=== PATIENT | male | born 1955 | race Caucasian/White ===

== ENCOUNTER 2017-05-07 09:53 | Day surgery (SDC) | payer OTHER ==
[2017-05-07] VITALS (10 sets, daily range): BP systolic 135–160; BP diastolic 79–83; PULSE 61–108; RESP 16–22; TEMP 79.6–98.3; O2SAT 95–98
[~2017-05-07] VITALS: Ht 188 cm; Wt 101.5 kg
[~2017-05-07 09:53] MED LIST: ASPI81 PO; ATOR10 PO; GLUCTAB PO; VASO10TA8 PO
[2017-05-07] MEDS: NS 1000P @30 MLS/HR (KVO) IV SCH (10:15)
[2017-05-07 10:36] LABS: BASOPHIL # 0.1 TH/MM3 (0-0.2); BASOPHIL % 0.9 % (0.0-2.0); EOSINOPHIL # 0.1 TH/MM3 (0-0.4); EOSINOPHIL % 1.9 % (0.0-4.0); HEMATOCRIT 35.4 % (39.0-51.0); HEMO FLAGS DIFF FINAL; LYMPH % 21.2 % (9.0-44.0); LYMPHOCYTE # 1.6 TH/MM3 (1.0-4.8); MEAN CELL VOLUME 82.5 FL (80.0-100.0); MEAN CORPUSCULAR HEMOGLOBIN 28.1 PG (27.0-34.0); MONO % 8.1 % (0.0-8.0); NEUT % 67.9 % (16.0-70.0); PLATELET COUNT 218 TH/MM3 (150-450); RED BLOOD COUNT 4.29 MIL/MM3 (4.50-5.90); RED CELL DISTRIBUTION WIDTH 14.6 % (11.6-17.2); WHITE BLOOD COUNT 7.4 TH/MM3 (4.0-11.0)
[2017-05-07] MEDS ORDERED: ENAL10TA PO (10:38)
[2017-05-07] MEDS ORDERED: METO25TA6 PO (10:38)
[2017-05-07] MEDS ORDERED: AMLO5TAB2 PO (10:38)
[2017-05-07] MEDS ORDERED: BRIM0.2S4 EACH EYE (10:38)
[2017-05-07] MEDS ORDERED: TRAD5TAB PO (10:38)
[2017-05-07] MEDS ORDERED: METF500T PO (10:38)
[2017-05-07] MEDS ORDERED: ATOR10TA15 PO (10:38)
[2017-05-07] MEDS ORDERED: TRAV0.00 RIGHT EYE (10:38)
[2017-05-07] MEDS ORDERED: ASPI81TA11 PO (10:38)
[2017-05-07 10:43] LABS: APTT (PATIENT) 27.3 SEC (24.3-30.1); PROTHROMBIN TIME - PATIENT 10.7 SEC (9.8-11.6)
[2017-05-07 10:47] LABS: BICARBONATE 28.9 MEQ/L (21.0-32.0); POTASSIUM 4.1 MEQ/L (3.5-5.1)
[2017-05-07] MEDS ORDERED: methylPREDNISolone SOD SUCC 125 MG/2 ML VIAL ONE (10:47)
[2017-05-07] MEDS ORDERED: FAMOTIDINE 20 MG/2 ML VIAL IV PUSH ONE (11:15)
[2017-05-07] MEDS ORDERED: methylPREDNISolone SOD SUCC 125 MG/2 ML VIAL IV PUSH ONE (11:15)
[2017-05-07] MEDS ORDERED: MIDAZOLAM HCL 2 MG/2 ML VIAL ONE (13:15)
[2017-05-07] MEDS ORDERED: HEPARIN-NS/PF INJ 500 ML ONE (13:15)
[2017-05-07] MEDS ORDERED: FAMOTIDINE 20 MG/2 ML VIAL ONE (13:24)
[2017-05-07] MEDS ORDERED: diphenhydrAMINE HCL 50 MG/ML VIAL ONE ×2 (13:43→13:49)
[2017-05-07] MEDS ORDERED: TICAGRELOR 90 MG TAB PO ONE (15:04)
--- NOTE | 2017-05-07 15:33 | CATHPROC ---
[employer] HIS Report Study Information Study Number Admission Scheduled Start Study Start [id number] May 07 2017 9:53AM 05/07/2017 May 07 2017 1:11PM [place] [facility] Cardiac Catheterization Admit Source Facility Department Other [facility] - Water Truck Driver Physician and Clinical Staff Initial Cedrick De Paz Jig Bore Operator Marie Oliveira BSRN Other cathlab, cathlab Recorder Gerry Finley RCIS(BS) Scrub Leo Galvez,RT(R) Procedures Performed Procedure Location (Site) Vessel Name Angiogram LV LV Ventricle Coronary Angiograms RCA Right Coronary Drug Eluting Inflatio LAD Mid Left Coronary L Heart Cath PTCA LAD Mid Left Coronary Wire insertion Fem Art (right) Femoral Art Equipment Time Neurourologist Description Size Mfg Part Number Used/Scraped WIRE, BALANCE MIDDLEWEIGHT [id number] 15:03 [employer] 190CM Used 190CM *[id number] WIRE, BALANCE MIDDLEWEIGHT [id number] 14:19 [employer] 300CM Used 300CM *[id number] TRANSDUCER, TRUWAVE [id number] 13:39 HERNANDEZ CONSTANTINO * Used W/STOCKCOCK *[id number] CARDIOVASCULAR CATHETER, CORONARY CLASSIC [id number] 14:25 Used SYSTEMS INC. 1.25MM *[id number] CARDIOVASCULAR WIRE, VIPER ADVANCE [id number] 14:23 Used SYSTEMS INC. CORONARY FLP *[id number] [id number] *[id number] 534-520T *[id number] [id number] *[id number] *[id number] *[id number] 15:11 DAIG/ST. ANY MEDICAL ANGIOSEAL, FR6 VIP FR 6 Used *[id number] [id number] 13:39 MEDLINE INDUSTRIES PACK, CCL CUSTOM * Used *[id number] 13:39 MEDLINE PACER PEN, SKIN DUAL W/ RULER * Used *[id number] BALLOON, 1.25 X 6MM SPRINTER [id number] 14:22 MEDTRONIC 6MM Used LEGEND OTW *[id number] 14:41 MEDTRONIC BALLOON, 2.0 X 12MM EUPHORA 12MM Used *[id number] BALLOON, 2.5 X 12MM NC [id number] 14:54 MEDTRONIC 12MM Used EUPHORA *[id number] STENT, 2.5 26 RESOLUTE [id number] 14:49 MEDTRONIC 2.5 26 Used INTEGRITY RX *[id number] [id number] 14:44 [employer]App MEDICAL 30 RUBIN INDEFLATOR Used *4154525 [id number] 14:13 MERIT MEDICAL SHEATH, FR6.5 PRELUDE 11CM FR 6.5 038ACT Used *[id number] [id number] 13:39 [employer]App MEDICAL WIRE, 3MMJ .035 180CM 180CM Used *[id number] PROBE COVER, STERILE [id number] 13:39 NJOY MEDICAL * Used ULTRASOUND W/ GEL *[id number] 13:39 NAMIC MANIFOLD, 4 PORT * Used *[id number] [id number] 13:39 NAMIC TUBING, HIGH PRESSURE 48" 48" Used *[id number] 13:39 NYCOMED OMNIPAQUE, 350 MG, 150ML 150ML [id number] Used [id number] 13:39 NOONAN MEDICAL BLANKET,WARM AIR CCL * Used *[id number] 13:39 TERUMO MEDICAL SHEATH, FR5 TERUMO (10CM) FR 5 [id number] Used Equipment Model, Serial, Lot Number and Expiration Data Description Model Number Serial Number Lot Number Expiration Date ANGIOSEAL, FR6 VIP [id number] 01-07-2018 STENT, 2.5 26 RESOLUTE [id number] 07-15-2018 INTEGRITY RX WIRE, VIPER ADVANCE CORONARY [id number] 10-09-2018 History: Current Medications Medication Dosage/Unit Route Frequency Last Date/Time Taken ASA Glucophage Statins (any) History: Allergies Allergy Reaction Sulfa Contrast Media History: Risk Factors Family History of Hypertension Dyslipidemia Previous ME Previous Heart Failure Premature CAD Yes Yes No No No Prior Valve Prior PCI Prior CABG Surgery No No No Cerebrovascular Peripheral Artery Chronic Lung On Dialysis Diabetes Diabetes Therapy Disease Disease Disease No No No No Yes Oral History: Symptoms/Diagnosis Selection Items Chest pain Palpitations SOB History: Stress Tests Stress or Imaging Studies Performed Yes Standard Exercise Stress Test No Stress Echo No Stress Test SPECT Stress Test SPECT Result Stress Test SPECT Ischemia Risk/Extent Yes Positive Intermediate Stress Test CMR No Cardiac CTA Coronary Calcium Score No No Labs Hgb (g/dl) Hct (%) RBC (MIL/MM3) WBC (l/cumm) Platelets (thousands) 11.60-17.00 35.00-51.00 4.00-5.90 4.00-11.00 150.00-450.00 12.0 35.4 4.3 7.4 218 Glucose (mg/dl) BUN (mg/dl) Creatinine (mg/dl) BUN:Creatinine (1:x) 74.00-106.00 7.00-18.00 0.50-1.30 10.00-20.00 141 16 1.4 11.4 Na (meq/l) K (meq/l) Cl (meq/l) CO2 (mmol/L) Ca (mg/dl) 136.00-145.00 3.50-5.10 98.00-107.00 21.00-32.00 8.50-10.10 139 4.1 104 28.9 9.9 PT (sec) PTT (sec) INR (PTT:PT) 9.80-11.60 24.30-30.10 0.90-1.10 10.7 27.3 1 CPK-MB (ng/ML) 0.50-3.60 Not Drawn Medication Medication Total Dose (Bolus/Oral) Medication Total Dosage/Unit 1% XYLOCAINE 20 mL BENADRYL 75 mg BRILINTA 180 mg HEPARIN 8000 units NTG (IC) 600 mcg PEPCID 20 mg Medications (Bolus/Oral) Medication Time Given Dosage/Unit Administered By Reason PEPCID 05/07/2017 1:24:04 PM 20 mg Rittenour, Marie 20 mg PEPCID given in lab by Marie Oliveira BSRN in Left Antecubital via Peripheral IV. Ordered by Cedrick Graves. BENADRYL 05/07/2017 1:44:00 PM 25 mg Rittenour, Marie 25 mg BENADRYL given in lab by Marie Oliveira BSRN in Left Antecubital via Peripheral IV. Ordered by Cedrick Graves. BENADRYL 05/07/2017 1:47:29 PM 25 mg Rittenour, Marie 25 mg BENADRYL given in lab by Marie Oliveira BSRN in Left Antecubital via Peripheral IV. Ordered by Cedrick Graves. 1% XYLOCAINE 05/07/2017 1:49:02 PM 20 mL Cedrick Graves 20 mL 1% XYLOCAINE given in lab by Cedrick Graves in Right Groin via Subcutaneous. Ordered by Cedrick Silva. BENADRYL 05/07/2017 1:52:00 PM 25 mg Tee, Marie 25 mg BENADRYL given in lab by Marie Oliveira BSRN in Left Antecubital via Peripheral IV. Ordered by Cedrick Graves. HEPARIN 05/07/2017 2:07:08 PM 8000 units Ritconstantino, Marie 8000 units HEPARIN given in lab by Marie Oliveira BSRN in Left Antecubital via Peripheral IV. Orde red by Cedrick Graves. NTG (IC) 05/07/2017 2:40:10 PM 200 mcg Cedrick Graves 200 mcg NTG (IC) given in lab by Cedrick Graves via Intra-coronary. Ordered by Cedrick Graves. NTG (IC) 05/07/2017 2:52:38 PM 200 mcg Cedrick Graves 200 mcg NTG (IC) given in lab by Cedrick Graves via Intra-coronary. Ordered by Cedrick Graves. NTG (IC) 05/07/2017 2:58:02 PM 200 mcg Cedrick Graves 200 mcg NTG (IC) given in lab by Cedrick Graves via Intra-coronary. Ordered by Cedrick Graves. BRILINTA 05/07/2017 3:17:00 PM 180 mg Tee, Marie 180 mg BRILINTA given in lab by Marie Oliveira BSRN in Left Antecubital via Oral. Ordered by Cedrick Luevano. Medication (Drip) Medication Time Given Dosage/Unit Concentration/Unit Diluent (ml) Solutio n IV Solutions 05/07/2017 1:12:37 PM 0 mL (IV) 500 NaCl .9 Patient arrived on IV Solutions given by natalialab, cathlab in Left Antecubital via Peripheral IV. Pump /Drip Flow = 20 ml/hr using NaCl .9. Ordered by Cedrick Graves. Initial Case Assessment Cardiovascular HR Rhythm NIBP Chest Pain 84 SR 165/88 0 Edema Present Skin color Skin None Normal Warm Dry Circulatory - Right Pulses Dorsalis Pedis Femoral 3 3 Scale (0,1,2,3,4,d) Circulatory - Left Pulses Dorsalis Pedis Femoral 3 3 Scale (0,1,2,3,4,d) Neurological State Oriented to time-place- Alert Moves all extremities person Respiration - General Respiration Rate SpO2 (%) (B/min) 13 98 Final Case Assessment Cardiovascular HR Rhythm NIBP Chest Pain 87 SR 166/98 0 Edema Present Skin color Skin None Normal Warm Dry Circulatory - Right Pulses Dorsalis Pedis Femoral 3 3 Scale (0,1,2,3,4,d) Circulatory - Left Pulses Dorsalis Pedis Femoral 3 3 Scale (0,1,2,3,4,d) Neurological State Oriented to time-place- Alert Moves all extremities person Respiration - General Respiration Rate SpO2 (%) (B/min) 13 98 Chronological Log Time Study Chronological Log 13:11:11 Patient arrived via Bed. 13:11:12 Patient Name, D.O.B, / Armband Verified By R.N. 13:11:16 Consent signed by the physician and the patient and verified by the Water Truck Driver staff. 13:11:18 Patient has been NPO for More than 6Hrs. 13:11:19 NO Skin Breakdown- 13:12:29 Patient Warmer Placed on the Table. 13:12:36 A # 20 IV was noted in the Antecubital (left). Grade = 0 Patient arrived on IV Solutions given by cathlab, cathlab in Left Antecubital via Peripheral IV . Pump/Drip Flow = 20 13:12:37 ml/hr using NaCl .9. Ordered by Cedrick Graves. 13:12:38 History and physical on the chart or being dictated. Vitals capture started with the following parameters, Patient=Adult, Interval=5 min, Initial Pr sjmjat=166 mmHg, 13:19:46 Deflation Rate=5 mmHg 13:20:23 HR=84 bpm, NJDE=449/88 mmhg, SpO2=98.0 %, Resp=14 B/min, Pain=0, Roger=10, Carter=2 13:22:21 Reference ECG taken Assessment: Initial Case, HR=84 BPM, Rhythm=SR, HDIH=597/88 mmhg, Chest Pain=0, Edema=None, Col or=Normal, Skin = Warm, Dry Right Pulses: Hugh Ped=3, Femoral=3 13:22:27 Left Pulses: Hugh Ped=3, Femoral=3 Neurological: State=Alert, Ox3, GODINEZ Respiration: Resp=13 B/min, SpO2=98 % 13:23:37 Bilateral groins prepped with 2% chlorhexidine, and with a 3 min. waiting time. 20 mg PEPCID given in lab by Marie Oliveira BSRN in Left Antecubital via Peripheral IV. Orde red by Ely, 13:24:04 Cedrick. 13:25:28 HR=80 bpm, VHMC=995/79 mmhg, SpO2=99.0 %, Resp=17 B/min, Pain=0, Roger=10, Carter=2 13:25:50 SOLU-MEDROL GIVEN IN DOCU 13:27:01 Pressure channel 1 zeroed. 13:29:00 paged 13:30:27 HR=86 bpm, SWCC=120/82 mmhg, SpO2=99.0 %, Resp=7 B/min, Pain=0, Roger=10, Carter=2 13:35:30 HR=80 bpm, AWYB=762/75 mmhg, SpO2=99.0 %, Resp=11 B/min, Pain=0, Roger=10, Carter=2 13:40:29 HR=78 bpm, SVHH=069/76 mmhg, SpO2=98.0 %, Resp=20 B/min, Pain=0, Roger=10, Carter=2 13:43:34 MD arrived. 25 mg BENADRYL given in lab by Marie Oliveira BSRN in Left Antecubital via Peripheral IV. Or dered by Ely, 13:44:00 Cedrick. 13:46:05 HR=90 bpm, MYEY=377/83 mmhg, SpO2=98.0 %, Resp=14 B/min, Pain=0, Roger=10, Carter=2 25 mg BENADRYL given in lab by Marie Oliveira BSRN in Left Antecubital via Peripheral IV. Or dered by Ely, 13:47:29 Cedrick. Time Out. Correct patient, correct procedure,correct physician, power injector loaded with cont rast with surgical team 13:48:19 present. Time Out Concurred by , individual staff in procedure 13:49:01 Case Start 13:49:02 20 mL 1% XYLOCAINE given in lab by Cedrick Graves in Right Groin via Subcutaneous. Ordered by Cedrick Graves. 13:49:41 Access site was Right Femoral Artery. 13:50:27 HR=93 bpm, PZIN=576/91 mmhg, SpO2=98.0 %, Resp=16 B/min, Pain=0, Roger=10, Carter=2 13:50:52 A SHEATH, FR5 TERUMO (10CM) FR 5 was advanced into the Fem Art (right) using the Percutaneo us technique. 25 mg BENADRYL given in lab by Marie Oliveira BSRN in Left Antecubital via Peripheral IV. Or dered by Ely, 13:52:00 Cedrick. A PIGTAIL ANG. INFINITI CATHETER FR 5 was advanced over a wire. OMNIPAQUE, 350 MG, 150ML 150ML was used 13:52:11 for injections. 13:52:59 The LV was injected at 10 cc/sec for a total of 30. OMNIPAQUE, 350 MG, 150ML 150ML used. Recorded Pressure: LV, HR=94, Condition=Condition 1 13:53:54 (Left Ventricle) LV 187/0/18 Recorded Pressure: LV, Ao, HR=98, Condition=Condition 1 13:55:15 (Left Ventricle) LV 197/7/21, (Aorta) Ao 178/88/129 13:55:30 HR=96 bpm, TLQH=384/93 mmhg, SpO2=99.0 %, Resp=9 B/min, Pain=0, Roger=10, Carter=2 13:55:34 Catheter was removed A JL 4.0 INFINITI CATHETER FR 5 was advanced over a wire. OMNIPAQUE, 350 MG, 150ML 150ML was us ed for 13:55:36 injections. Recorded Pressure: Ao, HR=91, Condition=Condition 1 13:58:21 (Aorta) Ao 147/77/108 13:59:31 Catheter was removed A AR MOD INFINITI CATHETER FR 5 was advanced over a wire. OMNIPAQUE, 350 MG, 150ML 150ML was us ed for 13:59:34 injections. 13:59:42 The RCA was injected and visualized at various angles. OMNIPAQUE, 350 MG, 150ML 150ML used . 14:00:31 HR=91 bpm, UMQV=736/79 mmhg, SpO2=99.0 %, Resp=4 B/min, Pain=0, Roger=10, Carter=2 14:03:22 Catheter was removed 14:05:28 HR=89 bpm, KQWZ=276/80 mmhg, SpO2=98.0 %, Resp=24 B/min, Pain=0, Roger=10, Carter=2 8000 units HEPARIN given in lab by Marie Oliveira BSRN in Left Antecubital via Peripheral IV . Ordered by Ely, 14:07:08 Cedrick. 14:11:08 QG=138 bpm, QOFP=582/109 mmhg, SpO2=99.0 %, Resp=12 B/min, Pain=0, Roger=10, Carter=2 A SHEATH, FR6.5 PRELUDE 11CM FR 6.5 was exchanged in the Fem Art (right). This was necessary in order to 14:12:33 accomodate a larger catheter. 14:13:12 Activated Clotting Time Drawn A XB LAD 4.0 GUIDE CATHETER FR 6 was advanced over a wire. OMNIPAQUE, 350 MG, 150ML 150ML was u sed for 14:13:54 injections. 14:15:37 HR=97 bpm, YBPG=540/89 mmhg, SpO2=98.0 %, Resp=14 B/min, Pain=0, Roger=10, Carter=2 14:17:00 ACT (Normal Range 90-180) = 278 14:19:05 A WIRE, BALANCE MIDDLEWEIGHT 300CM 300CM was inserted via Fem Art (right). 14:20:30 HR=92 bpm, WRIL=117/88 mmhg, SpO2=97.0 %, Resp=23 B/min, Pain=0, Roger=10, Carter=2 14:20:40 Interventional wire has crossed the lesion A BALLOON, 1.25 X 6MM SPRINTER LEGEND OTW 6MM was inserted over WIRE, BALANCE MIDDLEWEIGHT 300C M 14:21:26 300CM via the Fem Art (right). 14:23:52 The previous wire was exchanged for a WIRE, VIPER ADVANCE CORONARY. 14:25:31 HR=90 bpm, PCFT=516/89 mmhg, SpO2=97.0 %, Resp=23 B/min, Pain=0, Roger=10, Carter=2 14:29:50 An CATHETER, CORONARY CLASSIC 1.25MM catheter was inserted into the Fem Art (right). 14:30:00 ATHERECTOMY IN PROGRESS 14:30:34 HR=83 bpm, ZZNX=185/81 mmhg, SpO2=98.0 %, Resp=18 B/min, Pain=0, Roger=10, Carter=2 14:35:02 ATHERECTOMY DEVICE REMOVED 14:35:31 TX=315 bpm, JNRP=748/108 mmhg, SpO2=98.0 %, Resp=14 B/min, Pain=0, Roger=10, Carter=2 14:36:00 Wire removed 14:39:56 A WIRE, ATW MARKER 195CM 195CM was inserted via Fem Art (right). 14:40:10 200 mcg NTG (IC) given in lab by Cedrick Graves via Intra-coronary. Ordered by Antonio Graves. 14:40:32 HR=95 bpm, BIIN=006/86 mmhg, SpO2=98.0 %, Resp=5 B/min, Pain=0, Roger=10, Carter=2 14:43:06 Activated Clotting Time Drawn A BALLOON, 2.0 X 12MM EUPHORA 12MM was inserted over WIRE, ATW MARKER 195CM 195CM via the Fem A rt 14:43:41 (right). A BALLOON, 2.0 X 12MM EUPHORA 12MM over a WIRE, ATW MARKER 195CM 195CM in the LAD Mid was infla kye using 14:43:51 a 30 RUBIN INDEFLATOR at 14 rubin for 30 sec. A BALLOON, 2.0 X 12MM EUPHORA 12MM over a WIRE, ATW MARKER 195CM 195CM in the LAD Mid was infla kye using 14:45:05 a 30 RUBIN INDEFLATOR at 14 rubin for 25 sec. 14:45:27 HR=92 bpm, YAHX=976/93 mmhg, SpO2=97.0 %, Resp=6 B/min, Pain=0, Roger=10, Carter=2 A BALLOON, 2.0 X 12MM EUPHORA 12MM over a WIRE, ATW MARKER 195CM 195CM in the LAD Mid was infla kye using 14:45:49 a 30 RUBIN INDEFLATOR at 14 rubin for 25 sec. Recorded Pressure: Ao, HR=98, Condition=Condition 1 14:46:07 (Aorta) Ao 174/99/135 14:47:08 ACT (Normal Range 90-180) = 283 14:48:09 Balloon Removed. 14:50:32 HR=84 bpm, MNYH=397/86 mmhg, SpO2=98.0 %, Resp=16 B/min A STENT, 2.5 26 RESOLUTE INTEGRITY RX 2.5 26 was advanced through a XB LAD 4.0 GUIDE CATHETER F R 6 over a 14:50:33 WIRE, ATW MARKER 195CM 195CM. A STENT, 2.5 26 RESOLUTE INTEGRITY RX 2.5 26 was deployed using a 30 RUBIN INDEFLATOR at 9 atmosp heres for 38 14:50:45 seconds in the LAD Mid. 14:52:18 Delivery device removed 14:52:38 200 mcg NTG (IC) given in lab by Cedrick Graves via Intra-coronary. Ordered by Antonio Graves. A BALLOON, 2.5 X 12MM NC EUPHORA 12MM was inserted over WIRE, ATW MARKER 195CM 195CM via the Fe m Art 14:54:38 (right). A BALLOON, 2.5 X 12MM NC EUPHORA 12MM over a WIRE, ATW MARKER 195CM 195CM in the LAD Mid was in flated 14:54:49 using a 30 RUBIN INDEFLATOR at 12 rubin for 19 sec. 14:55:33 HR=91 bpm, JDNB=178/88 mmhg, SpO2=96.0 %, Resp=10 B/min, Pain=0, Roger=10, Carter=2 A BALLOON, 2.5 X 12MM NC EUPHORA 12MM over a WIRE, ATW MARKER 195CM 195CM in the LAD Mid was in flated 14:56:43 using a 30 RUBIN INDEFLATOR at 12 rubin for 22 sec. A BALLOON, 2.5 X 12MM NC EUPHORA 12MM over a WIRE, ATW MARKER 195CM 195CM in the LAD Mid was in flated 14:57:17 using a 30 RUBIN INDEFLATOR at 12 rubin for 25 sec. 14:57:43 Balloon Removed. 14:58:02 200 mcg NTG (IC) given in lab by Cedrick Graves via Intra-coronary. Ordered by Antnoio Graves. 14:59:22 Wire removed 15:00:30 HR=95 bpm, QARW=199/83 mmhg, SpO2=97.0 %, Resp=13 B/min, Pain=0, Roger=10, Carter=2 15:03:23 A WIRE, BALANCE MIDDLEWEIGHT 190CM 190CM was inserted via Fem Art (right). A BALLOON, 2.5 X 12MM NC EUPHORA 12MM was inserted over WIRE, BALANCE MIDDLEWEIGHT 190CM 190CM via 15:04:07 the Fem Art (right). A BALLOON, 2.5 X 12MM NC EUPHORA 12MM over a WIRE, BALANCE MIDDLEWEIGHT 190CM 190CM in the LAD Mid 15:04:55 was inflated using a 30 RUBIN INDEFLATOR at 20 rubin for 32 sec. 15:05:31 HR=85 bpm, AUEV=360/79 mmhg, SpO2=97.0 %, Resp=14 B/min, Pain=0, Roger=10, Carter=2 A BALLOON, 2.5 X 12MM NC EUPHORA 12MM over a WIRE, BALANCE MIDDLEWEIGHT 190CM 190CM in the LAD Mid 15:06:23 was inflated using a 30 RUBIN INDEFLATOR at 20 rubin for 28 sec. 15:07:54 Balloon Removed. 15:08:00 Wire removed 15:08:18 Catheter was removed 15:08:31 An injection in the Fem Art (right) was made through the SHEATH, FR6.5 PRELUDE 11CM FR 6.5. 15:10:30 HR=94 bpm, JCEA=506/98 mmhg, SpO2=98.0 %, Resp=13 B/min, Pain=0, Roger=10, Carter=2 15:11:47 ANGIOSEAL, FR6 VIP FR 6 placement in the Fem Art (right) Assessment: Final Case, HR=87 BPM, Rhythm=SR, NPBA=618/98 mmhg, Chest Pain=0, Edema=None, Color =Normal, Skin = Warm, Dry Right Pulses: Hugh Ped=3, Femoral=3 15:12:13 Left Pulses: Hugh Ped=3, Femoral=3 Neurological: State=Alert, Ox3, GODINEZ Respiration: Resp=13 B/min, SpO2=98 % 15:13:00 Case End 15:14:48 Sterile dressing applied to site 15:14:49 No case complications noted. 15:14:52 Cine recording checked. 15:14:54 Bedside Report will be given. 15:14:55 Implantable Device card placed in patient's chart. 15:14:58 Contrast Scanned 15:15:01 A Left Heart Cath was performed. 15:15:03 Patient moved to stretcher 15:15:35 HR=90 bpm, OKVP=614/93 mmhg, SpO2=98.0 %, Resp=8 B/min, Pain=0, Roger=10, Carter=2 15:17:00 180 mg BRILINTA given in lab by Marie Oliveira BSRN in Left Antecubital via Oral. Ordere d by Cedrick Graves. 15:20:34 OGXT=210/89 mmhg, SpO2=97.0 %, Pain=0, Roger=10, Carter=2 End Study - Contrast Media Used In Study Contrast Total Opened (mL) Total Used (mL) Total Wasted (mL) Omnipaque 225 225 0 End Study - Maximum Contrast Load Max Contrast Load (mL) 369.6 End Study - Radiation Exposure Fluoro Time (minutes) 17.5 End Study - Patient Disposition Complications Transferred To Interventional Outcome No Telemetry Bed successful
[2017-05-07] MEDS ORDERED: MISC INFORMATION XX ONE (16:00)
[2017-05-07] MEDS ORDERED: TEMAZEPAM 15 MG CAP PO PRN (16:00)
[2017-05-07] MEDS ORDERED: ACETAMINOPHEN 325 MG TAB PO PRN (16:00)
[2017-05-07] MEDS ORDERED: HEPARIN SODIUM - IV 10,000 UNITS/10 ML VIAL ONE (16:17)
[2017-05-07] MEDS ORDERED: SODIUM CHLOR 0.9% 1000 ML INJ 1,000 ML IV SCH (16:30)
[2017-05-07] MEDS ORDERED: IOHEXOL 350 MG/ML 100 ML BTL (for Cath Lab) OTHER ONE (16:48)
[2017-05-07] MEDS ORDERED: IOHEXOL 350 MG/ML 50 ML BTL (for RAD DIAG) OTHER ONE (16:48)
[2017-05-07 20:28] LABS: BASOPHIL % 0.1 % (0.0-2.0); HEMATOCRIT 37.9 % (39.0-51.0); HEMO FLAGS DIFF FINAL; LYMPH % 6.2 % (9.0-44.0); LYMPHOCYTE # 0.7 TH/MM3 (1.0-4.8); MEAN CELL VOLUME 82.8 FL (80.0-100.0); MEAN CORPUSCULAR HGB CONC 33.8 % (32.0-36.0); MONO % 0.9 % (0.0-8.0); NEUT % 92.8 % (16.0-70.0); PLATELET COUNT 225 TH/MM3 (150-450); RED BLOOD COUNT 4.57 MIL/MM3 (4.50-5.90); RED CELL DISTRIBUTION WIDTH 14.7 % (11.6-17.2); WHITE BLOOD COUNT 11.8 TH/MM3 (4.0-11.0)
[2017-05-07] MEDS ORDERED: LATANOPROST 0.005% OPHT SOLN 2.5 ML BTL RIGHT EYE SCH (21:00)
[2017-05-07] MEDS ORDERED: ATORVASTATIN 80 MG TAB PO SCH (21:00)
[2017-05-07] MEDS: BRIMONIDINE TARTRATE 0.2% OPHT SOLN 5 ML BTL EACH EYE SCH (21:00)
[2017-05-07] MEDS ORDERED: ATORVASTATIN 10 MG TAB PO SCH (21:00)
[2017-05-07] MEDS: METOPROLOL SUCCINATE 25 MG EXTENDED RELEASE TAB PO SCH (21:00)
--- NOTE | 2017-05-07 22:51 | EKG ---
Date Performed: 05/07/2017 Time Performed: 10:44:22 PTAGE: 61 years EKG: Sinus bradycardia with 1st degree A-V block Poor R wave progression - probable normal varia nt Abnormal ECG NO PREVIOUS TRACING DOCTOR: Cedrick Graves Interpretating Date/Time 05/07/2017 22:51:39
[2017-05-08] VITALS (18 sets, daily range): BP systolic 135–145; BP diastolic 72–77; PULSE 54–87; RESP 16–19; TEMP 97.6–97.9; O2SAT 96–98
--- NOTE | 2017-05-08 07:56 | EKG ---
Date Performed: 05/07/2017 Time Performed: 18:40:24 PTAGE: 61 years EKG: Sinus rhythm Normal ECG NO PREVIOUS TRACING DOCTOR: Eleazar Reddy Interpretating Date/Time 05/08/2017 07:52:22
[2017-05-08 08:02] LABS: AUTOMATED NEUTROPHIL # 12.7 TH/MM3 (1.8-7.7); HEMATOCRIT 33.2 % (39.0-51.0); HEMO FLAGS DIFF FINAL; LYMPH % 5.9 % (9.0-44.0); LYMPHOCYTE # 0.8 TH/MM3 (1.0-4.8); MEAN CELL VOLUME 82.6 FL (80.0-100.0); MEAN CORPUSCULAR HEMOGLOBIN 27.4 PG (27.0-34.0); MEAN CORPUSCULAR HGB CONC 33.2 % (32.0-36.0); MONO % 5.3 % (0.0-8.0); NEUT % 88.8 % (16.0-70.0); PLATELET COUNT 212 TH/MM3 (150-450); RED BLOOD COUNT 4.02 MIL/MM3 (4.50-5.90); RED CELL DISTRIBUTION WIDTH 14.5 % (11.6-17.2); WHITE BLOOD COUNT 14.3 TH/MM3 (4.0-11.0)
--- NOTE | 2017-05-08 08:15 | EKG ---
Date Performed: 05/08/2017 Time Performed: 06:35:54 PTAGE: 61 years EKG: Sinus rhythm Normal ECG PREVIOUS TRACING : 05/07/2017 18.40 DOCTOR: Eleazar Reddy Interpretating Date/Time 05/08/2017 08:12:00
[2017-05-08 08:39] LABS: BICARBONATE 21.9 MEQ/L (21.0-32.0); HDL CHOLESTEROL 61.4 MG/DL (40.0-60.0); POTASSIUM 4.3 MEQ/L (3.5-5.1)
[2017-05-08] MEDS: METOPROLOL SUCCINATE 25 MG EXTENDED RELEASE TAB PO SCH (08:47)
[2017-05-08] MEDS: BRIMONIDINE TARTRATE 0.2% OPHT SOLN 5 ML BTL EACH EYE SCH (08:47)
[2017-05-08] MEDS ORDERED: ENALAPRIL MALEATE 10 MG TAB PO SCH (09:00)
[2017-05-08] MEDS ORDERED: amLODIPine BESYLATE 5 MG TAB PO SCH (09:00)
[2017-05-08] MEDS ORDERED: ASPIRIN EC 81 MG TABEC PO SCH (09:00)
[2017-05-08] MEDS ORDERED: TICAGRELOR 90 MG TAB PO SCH (09:00)
[2017-05-08] MEDS ORDERED: PT OWN MED: TRADJENTA (LINAGLIPTIN) 5MG PO DAILY PO SCH (09:00)
[2017-05-08] MEDS: NS 1000P @30 MLS/HR (KVO) IV SCH (10:15)
--- NOTE | 2017-05-08 14:07 | PD.CARD.PN ---
Subjective Subjective Remarks No CP or SOB, feels well Objective Medications Current Medications Medications (Trade) Dose Ordered Sig/Regan Route Start Time Stop Time Status Last Admin (NS 1000 ml Inj) 1,000 ml @ 30 mls/hr Q24H IV 05/07/17 10:15 (Norvasc) 5 mg DAILY PO 05/08/17 09:00 (Ecotrin Ec) 81 mg DAILY PO 05/08/17 09:00 (Alphagan 0.2% Opth Soln) 1 drop BID EACH EYE 05/07/17 21:00 (Vasotec) 10 mg DAILY PO 05/08/17 09:00 (Toprol Xl) 25 mg BID PO 05/07/17 21:00 Patient Own Medication PT OWN MED: TRADJENTA (LINAGLIPT... DAILY PO 05/08/17 09:00 Hold (Xalatan 0.005% Opth Soln) 1 drop HS RIGHT EYE 05/07/17 21:00 (Lipitor) 80 mg HS PO 05/07/17 21:00 (Tylenol) 325 mg Q4H PRN PO 05/07/17 16:00 (Restoril) 15 mg HS PRN PO 05/07/17 16:00 (Brilinta) 90 mg BID PO 05/08/17 09:00 05/08/17 08:39 Vital Signs / I&O Vital Signs Date Time Temp Pulse Resp B/P Pulse Ox O2 Delivery O2 Flow Rate FiO2 05/08/17 12:00 62 05/08/17 11:35 97.7 63 19 137/73 98 05/08/17 11:00 67 05/08/17 10:00 62 05/08/17 09:00 54 05/08/17 08:00 58 05/08/17 07:30 97.9 60 18 135/72 96 05/08/17 07:00 67 05/08/17 06:43 78 05/08/17 05:03 64 05/08/17 04:26 66 05/08/17 03:10 97.6 78 16 145/77 96 05/08/17 03:09 65 05/08/17 02:10 63 05/08/17 01:04 58 05/08/17 00:31 73 05/07/17 23:25 97.9 68 16 135/80 95 05/07/17 23:00 65 05/07/17 22:00 108 05/07/17 21:00 68 05/07/17 20:00 79 05/07/17 20:00 97.6 71 18 147/81 98 05/07/17 19:21 79 05/07/17 18:13 70 22 151/79 05/07/17 17:43 82 20 160/83 05/07/17 17:30 98.3 85 20 149/82 I/O 05/07/17 05/07/17 05/07/17 05/08/17 05/08/17 05/08/17 07:00 15:00 23:00 07:00 15:00 23:00 Intake Total 500 ml 480 ml Output Total 700 ml Balance -200 ml 480 ml Intake Oral 480 ml IV Total 500 ml Output Urine Total 700 ml # Voids 2 Physical Exam GENERAL: In NAD SKIN: Warm and dry. HEAD: Normocephalic. EYES: No scleral icterus. No injection or drainage. NECK: Supple, trachea midline. No JVD or lymphadenopathy. CARDIOVASCULAR: Regular rate and rhythm without murmurs, gallops, or rubs. RESPIRATORY: Breath sounds equal bilaterally. No accessory muscle use. GASTROINTESTINAL: Abdomen soft, non-tender, nondistended. MUSCULOSKELETAL: No cyanosis, or edema. Laboratory Laboratory Tests Test 05/07/17 05/08/17 19:52 07:17 White Blood Count 11.8 TH/MM3 14.3 TH/MM3 Red Blood Count 4.57 MIL/MM3 4.02 MIL/MM3 Hemoglobin 12.8 GM/DL 11.0 GM/DL Hematocrit 37.9 % 33.2 % Mean Corpuscular Volume 82.8 FL 82.6 FL Mean Corpuscular Hemoglobin 28.0 PG 27.4 PG Mean Corpuscular Hemoglobin 33.8 % 33.2 % Concent Red Cell Distribution Width 14.7 % 14.5 % Platelet Count 225 TH/MM3 212 TH/MM3 Mean Platelet Volume 8.6 FL 8.5 FL Neutrophils (%) (Auto) 92.8 % 88.8 % Lymphocytes (%) (Auto) 6.2 % 5.9 % Monocytes (%) (Auto) 0.9 % 5.3 % Eosinophils (%) (Auto) 0.0 % 0.0 % Basophils (%) (Auto) 0.1 % 0.0 % Neutrophils # (Auto) 11.0 TH/MM3 12.7 TH/MM3 Lymphocytes # (Auto) 0.7 TH/MM3 0.8 TH/MM3 Monocytes # (Auto) 0.1 TH/MM3 0.8 TH/MM3 Eosinophils # (Auto) 0.0 TH/MM3 0.0 TH/MM3 Basophils # (Auto) 0.0 TH/MM3 0.0 TH/MM3 CBC Comment DIFF FINAL DIFF FINAL Differential Comment Sodium Level 136 MEQ/L Potassium Level 4.3 MEQ/L Chloride Level 104 MEQ/L Carbon Dioxide Level 21.9 MEQ/L Anion Gap 10 MEQ/L Blood Urea Nitrogen 26 MG/DL Creatinine 1.54 MG/DL Estimat Glomerular Filtration 46 ML/MIN Rate Random Glucose 291 MG/DL Calcium Level 9.3 MG/DL Total Creatine Kinase 96 U/L Triglycerides Level 94 MG/DL Cholesterol Level 180 MG/DL LDL Cholesterol 100 MG/DL HDL Cholesterol 61.4 MG/DL Cholesterol/HDL Ratio 2.93 RATIO Assessment and Plan Problem List: (1) Unstable angina (2) CAD (coronary artery disease) (3) Stented coronary artery Assessment and Plan Stable post PCI, no angina. Groin without hematoma. DC home. Continue Brilinta and baby ASA. Aggressive risk factor modification. Recheck renal fx on Fri. F/u w me in 2 weeks. Cedrick Graves MD May 08, 2017 14:07
[2017-05-08] MEDS ORDERED: ATOR1TAB18 PO (14:31)
[2017-05-08] MEDS ORDERED: METO25TA3 PO (14:31)
[2017-05-08] MEDS ORDERED: BRIL90TA PO (14:31)
--- NOTE | 2017-05-09 10:12 | MA ---
cc: EDILMA LEONARD Corrected Copy: 05/16/17 DATE: 05/07/2017 PROCEDURE PERFORMED 1. Retrograde left heart catheterization with left ventriculography and selective coronary angiography. 2. Rotational atherectomy, angioplasty and stenting of the mid left anterior descending artery. INDICATIONS Unstable angina, class III angina, intermediate probability nuclear marker perfusion study. ACCESS SITE Right femoral artery disease. EQUIPMENT USED 5-Georgian pigtail catheter, JL4 and AR modified coronary catheters, XB 4.0 LAD guide, BMW and marker wires, CSI Diamondback rotational atherectomy catheter, 2.0 balloon for pre-dilatation, 2.5 x 26 mm Resolute stent at 9 atmospheres post dilated with 2.5 x 12 mm noncompliant balloon at 20 atmospheres. MEDICATIONS Versed IV, Fentanyl IV, Heparin IV, nitroglycerin IC, Brilinta 180 mg p.o. CONTRAST 225 Omnipaque. COMPLICATIONS None. ESTIMATED BLOOD LOSS Less than 10 cc. METHOD OF HEMOSTASIS Angio-Seal closure. RESULTS HEMODYNAMICS Heart rate 80 beats per minute. End-diastolic pressure 7 mmHg. Left ventricle 197/7. Aorta 174/99/135. LEFT VENTRICULOGRAPHY Ejection fraction 60%. Wall motion normal. No mitral regurgitation. CORONARY ANGIOGRAPHY The main coronary artery is patent. The left anterior descending artery had 80% heavily calcified stenosis in the midportion. Lesion length was 22 mm. Pre JENNIFER flow III, post JENNIFER flow III, post stenosis zero. The first diagonal artery was large and parent. The left circumflex artery was patent. OM1 patent. OM2 patent. The ramus intermedius is patent. The right coronary is a dominant vessel with 20% stenosis in the midportion. PDA patent, PLV patent. DIAGNOSIS 1. Coronary artery disease with severe heavily calcified stenosis in the mid left anterior descending artery. 2. Overall preserved left ventricular systolic function. 3. Successful rotational atherectomy, angioplasty and stenting of the mid left anterior descending artery. 4. Mild aortic stenosis. DISPOSITION Mr. Walton will be monitored on telemetry after his procedure. I recommend he continue Brilinta 90 mg twice a day and baby aspirin for at least one year and then aspirin indefinitely. I also recommend aggressive modification of his cardiac risk factors. He will be seen back for follow-up in our office after discharge. MD CASA Aly /3:33 PM /7:37 AM
== END 2017-05-08 15:07 | disposition home or self-care (01) ==
LOC: HCAT 09:53 → HDIC 09:53 → HCIS 17:33 → HCAT 05-08 15:07 → HCIS 05-08 15:29
PROVIDERS: ATTEND Internal Medicine Interventional Cardiology
DX: I25.110 Atherosclerotic heart disease of native coronary artery with unstable angina pectoris (principal); R94.31 Abnormal electrocardiogram [ECG] [EKG]; R00.1 Bradycardia, unspecified
CPT/HCPCS: 80048; 80061; 82550; 85002; 85025; 85610; 85730; 92933; 93005; 93458; C1725; C1760; C1769; C1887; C1893; G0269; J1200; J1644; J2250; J3010; Q9967; J2930